=== PATIENT | male | born 1975 | race Asian ===

== ENCOUNTER 2022-02-14 07:47 | Day surgery (SDC) | payer MEDICAID ==
[~2022-02-14] VITALS: Ht 165.1 cm; Wt 59.0 kg
[2022-02-14] MEDS ORDERED: fentaNYL CITRATE/PF 100 MCG/2 ML AMP ONE (10:19)
[2022-02-14] MEDS ORDERED: MIDAZOLAM HCL 5 MG/5 ML VIAL ONE (10:20)
[2022-02-14 12:20] VITALS: BP_SYST 104
== END 2022-02-14 11:35 | disposition home or self-care (01) ==
LOC: SDS 07:47 → SMU 07:48 → EDSEX 09:30 → SDS 11:35
PROVIDERS: ATTEND Internal Medicine
DX: Z12.11 Encounter for screening for malignant neoplasm of colon (principal); K52.9 Noninfective gastroenteritis and colitis, unspecified; K57.30 Diverticulosis of large intestine without perforation or abscess without bleeding; K64.8 Other hemorrhoids; Z20.822 Contact with and (suspected) exposure to COVID-19; Z79.899 Other long term (current) drug therapy
CPT/HCPCS: 36415; 45380; 88305; 99152; U0003; G0378; J2250; J3010